=== PATIENT | male | born 1985 | race Caucasian/White ===

== ENCOUNTER 2018-03-02 21:30 | Emergency (ER) | payer OTHER ==
[2018-03-02] MEDS: HYDROCODONE/APAP (5/325) TAB PO (22:53)
[2018-03-02] MEDS: morphine 4 MG/ML VIAL IM (23:53)
== END 2018-03-02 23:59 | disposition home or self-care (01) ==
LOC: FTE 23:59 → E/R 21:30
DX: M54.5 Low back pain (principal)
CPT/HCPCS: 72100; 96372; 99284-25